=== PATIENT | female | born 1950 | race Caucasian/White ===

== ENCOUNTER 2016-08-17 12:50 | Emergency (ER) | payer OTHER ==
--- NOTE | ~2016-08-17 | EKG ---
PATIENT: KERVIN ELIAS UNIT #: [id number] Ventricular Rate: 77 BPM Atrial Rate: 77 BPM P-R Interval: 128 ms QRS Duration: 76 ms Q-T Interval: 388 ms QTC Calculation(Bezet): 439 ms P [place]: 58 degrees Calculated R [place]: -7 degrees Calculated T [place]: 8 degrees Diagnosis Line: Normal sinus rhythm Diagnosis Line: Possible Left atrial enlargement Diagnosis Line: Left ventricular hypertrophy Diagnosis Line: Abnormal ECG Diagnosis Line: When compared with ECG of 28-FEB-2011 21:17, Diagnosis Line: T wave inversion less evident in Inferior leads Diagnosis Line: Confirmed by MACK ZIMMERMAN MD ([id number]) on Diagnosis Line: 08/21/2016 11:02:40 AM INTERPRETING MD: ELSIE JARQUIN
--- NOTE | ~2016-08-17 | CR72 ---
[facility] RADIOLOGY TEXT RESULTS PATIENT: KERVIN ELIAS LOCATION: SED : 52 UNIT #: [id number] AGE: [address]: Adonay Zacarias MD SEX: F ORDER DR: [id number] [address] [address] [id number] MR#: [id number] Acc #: [id number] NAME: KERVIN ELIAS : 1950 SEX: F STUDY DATE/TIME: 08/17/2016 13:10 UNIT: SED ROOM: STUDY DESCRIPTION: CR Chest Single View Portable Attending Physician: Adonay Zacarias M.D. Ordering Physician: Adonay Zacarias M.D. Primary Care Physician: No Primary Care Physician MEDICAL IMAGING REPORT This report is preliminary unless electronic signature is present. EXAM AP portable chest. DATE 08/17/2016 HISTORY Chest pain since Sunday, worse over last night. Greatest in the mid sternal region. COMPARISON AP portable chest, 02/28/2011. FINDINGS Low volume inspiration. Lung bases are partially attenuated by the patient's soft tissue habitus. The heart size is upper limits normal but stable. No pleural effusion or pneumothorax or evidence of central vascular congestion change. IMPRESSION Low-volume inspiration with stable borderline cardiac enlargement. No acute chest findings. Dictated by... Criss Harvey M.D. THIS IS AN ELECTRONICALLY VERIFIED REPORT Criss Harvey M.D. at 08/18/2016 9:[address] [facility]/lenka TD: 08/17/2016 17:43 [facility] RADIOLOGY TEXT RESULTS PATIENT: KERVIN ELIAS LOCATION: SED : 52 UNIT #: [id number] AGE: [address]: Adonay Zacarias MD SEX: F ORDER DR: NOE #: [id number] MEDICAL IMAGING REPORT Page 1 of 1
[~2016-08-17 12:50] MED LIST: ACETAMINOPHEN PO; DULCOLAX5 MG PO; LISINOPRIL10 MG PO; NO MEDICATIONS; PRILOSEC PO; SURFAK PO
[2016-08-17 13:14] LABS: BASOPHIL% 0.2 % (0-2.5); EOSINOPHIL# 0.1 X10e3 (0-0.7); EOSINOPHIL% 1.3 % (0.0-7.0); HEMATOCRIT 40.5 % (35.0-45.0); HEMOGLOBIN 13.3 gm/dL (12.0-16.0); LYMPHOCYTE# 2.7 X10e3 (1.0-3.5); LYMPHOCYTE% 29.6 % (17.0-45.0); MEAN CELL VOLUME 79.3 FL (83-96); MEAN CORPUSCULAR HGB CONC 32.7 g/dL (30-36); MEAN PLATELET VOLUME 8.6 FL (6.5-11.5); MONOCYTE# 0.6 X10e3 (0-1.0); MONOCYTE% 6.7 % (3.0-12.0); NEUTROPHIL# 5.7 X10e3 (1.5-7.1); NEUTROPHIL% 62.2 % (40-75); PLATELET COUNT 230 X10e3 (140-420); RED BLOOD COUNT 5.11 X10e (3.90-5.30); RED CELL DISTRIBUTION WIDTH 15.5 % (11.0-15.5); WHITE BLOOD COUNT 9.2 X10e3 (4.0-10.5)
[2016-08-17 13:23] LABS: DIFF IND NO
[2016-08-17 13:39] LABS: ALBUMIN SERUM 4.3 g/dL (3.5-5.0); ALKALINE PHOSPHATASE 76 U/L (32-92); ALT (SGPT) 16 U/L (10-40); AST (SGOT) 21 U/L (10-42); BILIRUBIN,TOTAL 0.3 mg/dL (0.2-2.0); BLOOD UREA NITROGEN 15 mg/dL (9-23); BUN/CREATININE RATIO 18.75; CALCIUM SERUM 9.5 mg/dL (8.4-10.2); CARBON DIOXIDE 26 mmol/L (22-31); CHLORIDE 104 mmol/L (100-111); CREATININE SERUM 0.8 mg/dL (0.6-1.4); GLUCOSE FASTING 100 mg/dL (70-110); POTASSIUM 3.8 mmol/L (3.5-5.1); PROTEIN TOTAL SERUM 8.1 g/dL (6.0-8.3); SODIUM 138 mmol/L (135-145)
[2016-08-17 13:55] LABS: BILIRUBIN, DIRECT <0.1 mg/dL (0.0-0.2); BILIRUBIN,INDIRECT 0.2 mg/dL (0.0-0.9)
== END 2016-08-17 15:30 | disposition home or self-care (01) ==
LOC: SED 12:50
PROVIDERS: Emergency Medicine
DX: R07.89 Other chest pain (principal); R06.02 Shortness of breath
CPT/HCPCS: 36415; 71010; 80048; 80076; 85025; 93005; 96374; 96375; 99285; J2270; J2405